=== PATIENT | female | born 1980 | race American Indian/Alaskan Native ===

== ENCOUNTER 2019-01-16 14:15 | Emergency (ER) | payer OTHER ==
[2019-01-16 14:26] VITALS: BP 124/74
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
--- NOTE | 2019-01-16 15:35 | XRay Report ---
RIGHT HAND, 3 VIEWS INDICATION: Right hand pain. COMPARISON: None. IMPRESSION: No acute osseous or soft tissue abnormality. No significant DJD. Signer Name: Nathan Sky Jr, MD Signed: 01/16/2019 3:31 PM Workstation Name: [id number]
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
[2019-01-16] MEDS ORDERED: KETOROLAC 60 MG/2 ML INJ IM ONE (17:28)
== END 2019-01-16 18:07 | disposition home or self-care (01) ==
LOC: ED 14:15
DX: M54.2 Cervicalgia (principal); M54.5 Low back pain; Z53.21 Procedure and treatment not carried out due to patient leaving prior to being seen by health care provider
CPT/HCPCS: 72040; 72100; 73130; 96372; 99283; J1885